=== PATIENT | male | born 1935 | race Caucasian/White ===

== ENCOUNTER → 2016-10-11 | Outpatient (CLI) | payer OTHER, MEDICAID | LOC: BHFA 15:00 | PROVIDERS: ATTEND Internal Medicine Cardiovascular Disease | DX: I48.91 Unspecified atrial fibrillation (principal); I50.9 Heart failure, unspecified; I10 Essential (primary) hypertension; E78.5 Hyperlipidemia, unspecified ==

== ENCOUNTER → 2016-11-30 | Outpatient (CLI) | payer OTHER, MEDICAID | LOC: CIMAGING 10:16 | PROVIDERS: ATTEND Internal Medicine Cardiovascular Disease | DX: J98.11 Atelectasis (principal); I48.91 Unspecified atrial fibrillation; I11.0 Hypertensive heart disease with heart failure; E78.5 Hyperlipidemia, unspecified | CPT/HCPCS: 71020-PO ==

== ENCOUNTER → 2017-03-07 | Outpatient (CLI) | payer OTHER, MEDICAID | LOC: FIMAGING 12:53 | PROVIDERS: ATTEND Family Medicine | DX: N64.4 Mastodynia (principal); N62 Hypertrophy of breast | CPT/HCPCS: G0204 ==

== ENCOUNTER 2017-03-21 07:50 | Emergency (ER) | payer OTHER, MEDICAID ==
[2017-03-21 08:04] VITALS: TEMP 98.2
--- NOTE | 2017-03-21 08:04 | CPEKG ---
Heart Rate: 70 RR Interval: 857 P-R Interval: 232 QRSD Interval: 140 QT Interval: 444 QTC Interval: 480 P Mongo: 54 QRS Mongo: -58 T Wave Mongo: 90 EKG Severity - ABNORMAL ECG - EKG Impression: SINUS RHYTHM EKG Impression: FIRST DEGREE AV BLOCK EKG Impression: LEFT BUNDLE BRANCH BLOCK Electronically Signed By: Hector Gold 22-Mar-2017 21:04:33
--- NOTE | 2017-03-21 08:44 | EDPHY ---
H & P Stated Complaint: "high blood pressure" Time Seen by Provider: 03/21/17 08:02 HPI/ROS: CHIEF COMPLAINT: Headache, chills, hypertension HISTORY OF PRESENT ILLNESS: The patient is a [place] Islander-speaking 81 y/o male arriving with his complaining of chills and a headache onset last night and hypertension this morning. He began feeling poor around 18:00 last night with chills and a headache. He took Tylenol before sleeping and ibuprofen this morning when his headache was still present. He then measured his BP and found it to be 185/90 systolic this morning before taking his medications. It improved after he took Carvedilol, but then spiked to 190/115 so he took another half dose of his Carvedilol. His BP is currently improved and he no longer has a headache, though he does feel mildly dizzy. He thinks his dizziness is related to his chronic eye problems including macular degeneration , glaucoma, and cataracts. He has experienced this dizziness before. He also has mild right-sided abdominal pain only in certain positions. He denies fever, chest pain, dyspnea, vomiting, diarrhea. History obtained via phone bottom turner and is limited due to difficulty with this interaction. REVIEW OF SYSTEMS: A 10 point review of systems was performed and is negative with the exception of the elements mentioned in the history of present illness. Past medical history: 1. Hypertension - Carvedilol 6.25mg 2. Ischemic cardiomyopathy 3. Paroxysmal atrial fibrillation - previously on Xarelto 4. Ventricular tachycardia with AICD placement in December 2011 5. COPD 6. Glaucoma 7. Macular degeneration 8. Allergic rhinitis 9. Dyslipidemia 10. Transaminitis 11. Cataracts 12. Chronic back pain 13. Anxiety 14. BPH 15. Chronic kidney disease Past surgical history: AICD placement, cataract surgery, appendectomy Family history: Noncontributory. Social history: [place]er. at bedside. Former smoker for 53 years, no smoking for 11 years. No alcohol use for 20 years. PCP: Dr. Maxwell, Nail Assembly Machine Operator : Dr. Kaur. Prior medical records reviewed including admission note 07/02/15 for dizziness. General Appearance: Alert, no acute distress. 127/65 Eyes: Pupils equal and round, no conjunctival injection, no discharge. ENT, Mouth: Mucous membranes are moist, no oropharyngeal erythema or edema. Upper and lower dentures. Neck: No lymphadenopathy, supple. Respiratory: Lungs are distant but clear to auscultation; no wheezes, rales, or rhonchi. Cardiovascular: Regular rate and rhythm; no murmur, rub, or gallop. Gastrointestinal: Abdomen is soft and non tender, no masses or organomegaly, bowel sounds normal. Skin: Warm and dry, no rashes, normal color. Back: Nontender to palpation over the thoracolumbar spine. Extremities: No lower extremity edema, no calf tenderness or swelling. Neurological: Alert and oriented. Moving all four extremities easily and equally. ANANTH. EOMI. Tongue midline. Facial expressions symmetric. Psychiatric: Normal affect. - Personal History Current Tetanus Diphtheria and Acellular Pertussis (TDAP): Unsure - Medical/Surgical History Hx Asthma: No Hx Chronic Respiratory Disease: Yes Hx Diabetes: No Hx Cardiac Disease: Yes Hx Renal Disease: No Hx Cirrhosis: No Hx Alcoholism: No Hx HIV/AIDS: No Hx Splenectomy or Spleen Trauma: No Other PMH: PACER/HERNIA/ORTHO/ COPD/ O2 at home kris, angiogram (coronary), HTN - Social History Smoking Status: Former smoker Constitutional: Initial Vital Signs Temperature (C) 36.8 C 03/21/17 07:59 Heart Rate 70 03/21/17 07:59 Respiratory Rate 18 03/21/17 07:59 Blood Pressure 160/93 H 03/21/17 07:59 O2 Sat (%) 97 03/21/17 07:59 O2 Delivery Mode Room Air Allergies/Adverse Reactions: No Known Allergies Allergy (Verified 07/18/14 18:58) Home Medications: Medication Instructions Recorded Aspirin EC [Aspirin EC 81 mg (*)] 81 mg PO DAILY 05/08/12 Tamsulosin HCl [Flomax 0.4 MG (*)] 0.4 mg PO DAILY18 05/08/12 Carvedilol [Coreg (*)] 3.125 mg PO BIDMEAL 07/17/13 Cholecalciferol Vit D3 [Vitamin D3 5,000 units PO DAILY 07/17/13 (*)] Diazepam [Valium 5 MG (*)] 2.5 mg PO HS 07/17/13 Latanoprost 0.005% [Xalatan 0.005% 1 drops EACHEYE HS 07/20/14 (*)] Mometasone Furoate Nasal [Nasonex] 1 sprays NASAL HS 07/20/14 Timolol 0.5% [TIMOPTIC 0.5% (*)] 1 drops EACHEYE DAILY 07/21/14 Furosemide [Lasix 20 MG (*)] 10 mg PO DAILY #0 tab 07/30/14 Potassium Cl [Klor-Con 10 meq (RX)] 10 meq PO DAILY #0 tab 07/30/14 Rivaroxaban [Xarelto 15mg (*)] 15 mg PO 1700 #30 tab 07/30/14 Spironolactone [Aldactone 25 MG 25 mg PO DAILY #0 tab 07/30/14 (*)] Acetaminophen [Tylenol 325mg (*)] 650 mg PO Q4 PRN #0 tab 08/02/14 Beta-Carotene(A) W-C & E/Min 1 tab PO DAILY 06/30/15 [Ocuvite] Ipratropium/Albuterol [Duoneb (*)] 3 ml IH TID 06/30/15 Amiodarone HCl 400 mg PO DAILY #12 tablet 07/02/15 Amiodarone HCl 400 mg PO DAILY #20 tablet 07/02/15 Medical Decision Making - Diagnostics Imaging: Discussed imaging studies w/ barrel stave inspector Radiologist, I viewed and interpreted images myself ED Course/Re-evaluation: This is a pleasant 81 y/o male who is primarily [place]er-speaking, which caused significant difficulty in obtaining a history from him even with a phone bottom turner. It sounds like he had a headache and chills last night that persisted this morning after Tylenol and ibuprofen use. He also noticed his BP was high this morning and took an extra dose of his Carvedilol. He has since felt mildly dizzy. His exam is unremarkable. Plan for IV, labs, EKG, and head CT to assess for end-organ damage. The 12 lead EKG was interpreted by machine setter sheet metal, I have reviewed it--there is a LBBB, not new. See hard copy and/or "tracemaster" electronic copy for interpretation. Initial blood pressure in the emergency department is 160/93. Subsequent blood pressures are 127/86, 137/85, and, at discharge 07/16 9/81. I do not think that his symptoms represent hypertensive emergency. He is currently headache free. Head CT shows atrophy and microvascular changes, nothing acute. CBC, chemistries, and troponin are reviewed. He is not having chest pain and I do not suspect an acute coronary syndrome. His kidney function is normal. 1002: Consulted with Dr. Maxwell, patient's PCP. He will see the patient as an outpatient. I do not feel that additional emergency department evaluation is needed at this time. The patient will continue his usual home medications. Differential Diagnosis: I considered a differential diagnosis that includes but is not limited to hypertensive emergency, hypertensive urgency, stroke, kidney damage, acute coronary syndrome, and poorly controlled hypertension. - Data Points Laboratory Results: Laboratory Results 03/21/17 07:45 03/21/17 07:45 Departure - Departure Disposition: Home, Routine, Self-Care Clinical Impression: Dizziness Headache Qualifiers: Headache type: unspecified Headache chronicity pattern: acute headache Intractability: not intractable Qualified Code(s): R51 - Headache Hypertension Qualifiers: Hypertension type: essential hypertension Qualified Code(s): I10 - Essential ( primary) hypertension Condition: Good Instructions: Acute Headache (ED), Dizziness (ED), Chronic Hypertension (ED) Additional Instructions: 1. Follow up with Dr. Maxwell this month. 2. Take all your medications as prescribed. 3. Return to the ED for worsening of condition. Referrals: Edward Maxwell MD [Primary Care Provider] - As per Instructions Report Scribed for: Herlinda Martinez Report Scribed by: Elis Roldan Date of Report: 03/21/17 Time of Report: 08:22 Physician Review and Approval Statement: 03/23/17 08:46 Portions of this note were transcribed by the medical lab specialist. I, Dr. Herlinda Martinez, personally performed the history, physical exam, and medical decision- making; and confirmed the accuracy of the information in the transcribed note.
[2017-03-21 09:02] LABS: % IMMATURE GRANULYOCYTES 0.3 % (0.0-1.1); ABSOLUTE IMMATURE GRANULOCYTES 0.03 10^3/uL (0.00-0.10); ADD DIFF? NO; ADD MORPH? NO; ADD SCAN? NO; ATYPICAL LYMPHOCYTE FLAG 0 (0-99); FRAGMENT RBC FLAG 0 (0-99); HEMATOCRIT 45.6 % (40.0-51.0); HEMOGLOBIN 15.2 g/dL (13.7-17.5); LEFT SHIFT FLG 0 (0-99); LIPEMIA HEMOLYSIS FLAG 80 (0-99); MEAN CELL HEMOGLOBIN 31.9 pg (27.9-34.1); MEAN CELL HEMOGLOBIN CONCENTR. 33.3 g/dL (32.4-36.7); MEAN CELL VOLUME 95.6 fL (81.5-99.8); MEAN PLATELET VOLUME 11.1 fL (8.7-11.7); PLATELET CLUMPS FLAG 0 (0-99); PLATELET COUNT 135 10^3/uL (150-400); RED BLOOD CELL COUNT 4.77 10^6/uL (4.40-6.38); RED CELL DISTRIBUTION WIDTH 13.1 % (11.5-15.2)
[2017-03-21 09:06] LABS: ANION GAP 13 mEq/L (8-16); CALCIUM 9.1 mg/dL (8.5-10.4); CARBON DIOXIDE 23 mEq/l (22-31); CHLORIDE 102 mEq/L (97-110); CREATININE 1.5 mg/dL (0.7-1.3); GLOMERULAR FILTRATION RATE 45; GLUCOSE 119 mg/dL (70-100); POTASSIUM 4.6 mEq/L (3.5-5.2); SODIUM 138 mEq/L (134-144)
[2017-03-21 09:17] LABS: TROPONIN I 0.027 ng/mL (0.000-0.034)
[2017-03-21 09:44] VITALS: PULSE 65; RESP 16
[2017-03-21 10:21] VITALS: BP 129/81; O2SAT 94
== END 2017-03-21 10:20 | disposition home or self-care (01) ==
LOC: EDUNIT#
DX: I12.9 Hypertensive chronic kidney disease with stage 1 through stage 4 chronic kidney disease, or unspecified chronic kidney disease (principal); R42 Dizziness and giddiness; J44.9 Chronic obstructive pulmonary disease, unspecified; N18.9 Chronic kidney disease, unspecified; Z79.82 Long term (current) use of aspirin; Z87.891 Personal history of nicotine dependence

== ENCOUNTER → 2017-07-04 | Outpatient (CLI) | payer OTHER, MEDICAID ==
[~2017-07-04] MED LIST: IOPAMIDOL (ISOVUE-300) 100 ML BTL ONE
== END ==
LOC: CIMAGING 10:32
PROVIDERS: ATTEND Internal Medicine Cardiovascular Disease
DX: J98.11 Atelectasis (principal); J43.9 Emphysema, unspecified; E04.1 Nontoxic single thyroid nodule; I25.10 Atherosclerotic heart disease of native coronary artery without angina pectoris; Z95.0 Presence of cardiac pacemaker
CPT/HCPCS: 71260; Q9967

== ENCOUNTER → 2018-03-20 | Outpatient (CLI) | payer OTHER, MEDICAID | LOC: CIMAGING 11:53 | PROVIDERS: ATTEND Internal Medicine Cardiovascular Disease | DX: I48.91 Unspecified atrial fibrillation (principal); J44.9 Chronic obstructive pulmonary disease, unspecified | CPT/HCPCS: 36415-PO; 71046-PO ==

== ENCOUNTER → 2018-08-18 | Outpatient (CLI) | payer OTHER, MEDICAID | LOC: BHCLAF 14:45 | PROVIDERS: ATTEND Internal Medicine Cardiovascular Disease | DX: I42.9 Cardiomyopathy, unspecified (principal) | CPT/HCPCS: 93306-PO ==